=== PATIENT | male | born 1985 | race African-American/Black ===

== ENCOUNTER 2019-02-09 13:35 | Emergency (ER) | payer SELFPAY ==
[~2019-02-09] VITALS: Ht 180.3 cm; Wt 104.5 kg
[~2019-02-09 13:35] MED LIST: BACTRIM PO; NO HOME MEDICATIONS; PHENERGAN W/CO120 ML PO
[2019-02-09 13:42] VITALS: BP 135/75; TEMP 99.1
[2019-02-09] MEDS ORDERED: NORCO 325 MG-7.1 TAB PO (15:18)
[2019-02-09 15:35] VITALS: PULSE 90
== END 2019-02-09 15:34 | disposition home or self-care (01) ==
LOC: COL.ER 13:35
DX: S83.92XA Sprain of unspecified site of left knee, initial encounter (principal); F17.210 Nicotine dependence, cigarettes, uncomplicated; X50.0XXA Overexertion from strenuous movement or load, initial encounter; Y92.009 Unspecified place in unspecified non-institutional (private) residence as the place of occurrence of the external cause